=== PATIENT | female | born 1985 | race African-American/Black ===

== ENCOUNTER 2018-11-26 23:22 | Observation (INO) | payer BC ==
[2018-11-27] MEDS ORDERED: diPHENhydraMINE IV* 50 MG/ML 1 ml VIAL (BENADRYL) IV ONE (02:54)
[2018-11-27] MEDS ORDERED: Famotidine IV* 10 MG/ML 2 ML (20 mg) IV SLOW PU ONE (02:54)
[2018-11-27] MEDS ORDERED: methylPREDNISolone 125 MG* 2 ML VIAL IV ONE (02:54)
[2018-11-27 04:31] LABS: ABS Basophils 0.1 10^3/ul (0-0.2); ABS Eosinophils 0.1 10^3/ul (0-0.6); ABS Monocytes 0.5 10^3/ul (0-0.8); ABS Neutrophils 6.5 10^3/ul (1.5-7.7); Hematocrit 35 % (35-47); Hemoglobin 11.7 g/dL (12.0-16.0); Lymphocyte % 22.1 %; Mean Corpuscular HGB Conc 34 g/dL (31-36); Mean Corpuscular Hemoglobin 28 pg (27-31); Mean Corpuscular Volume 83 fL (80-97); Mean Platelet Volume 7.7 fL (7.4-10.4); Nucleated Red Blood Cells % 0.1; Platelet Count 315 10^3/uL (150-450); Red Blood Count 4.22 10^6 /uL (3.70-4.87); Red Cell Distribution Width 15 % (10-15); White Blood Count 9.2 10^3/uL (3.5-10.8)
[2018-11-27 04:50] LABS: Albumin/Globulin Ratio 1.5 (1-3); BUN/Creatinine Ratio 7.2 (8-20); EGFR African American 95.2 (>60); EGFR Non-African American 78.7 (>60); Globulin 2.6 g/dL (2-4); Potassium 3.6 mmol/L (3.5-5.0); Total Bilirubin 0.5 mg/dL (0.2-1.0); Total Protein 6.6 g/dL (6.4-8.9)
--- NOTE | 2018-11-27 07:28 | ED ---
Complex/Multi-Sys Presentation - HPI Summary HPI Summary: The patient is a 33 y/o F presenting to [facility] with a chief complaint of swelling in the upper lip starting at 1999. She reports that earlier in the morning she used a lip plumping tool, which she has used before, and her lips returned to normal throughout the day. At 1999, the left side of her upper lip starting swelling, and then it spread to the rest of the lip and her cheeks. She additionally c/o LUNSFORD. She denies swelling of the lower lip, tongue swelling, and throat swelling. She used Benadryl [employer] to no relief. Hx of HTN (Lisinopril) , GERD (Pantoprazole). Current smoker, rare EtOH, no substance use. - History Of Current Complaint Chief Complaint: EDGeneral Time Seen by Provider: 11/27/18 02:31 Hx Obtained From: Patient Onset/Duration: Sudden Onset, Lasting Hours - 1999, Still Present Timing: Constant, Hours Severity Currently: Mild Severity Initially: Severe Character: Throbbing Aggravating Factor(s): nothing Alleviating Factor(s): nothing Associated Signs And Symptoms: Positive: Headache, Other - NEGATIVE: tongue or throat swelling, swelling of lower lip - Allergies/Home Medications Allergies/Adverse Reactions: Allergies Allergy/AdvReac Type Severity Reaction Status Date / Time lidocaine AdvReac See Comment Verified 11/27/18 02:55 Home Medications: Home Medications Ethinyl Estradiol/Drospirenone [Gianvi 3-0.02 mg] 1 tab PO DAILY 11/27/18 [ History Confirmed 11/27/18] Isotretinoin [Myorisan] 40 mg PO BID 11/27/18 [History Confirmed 11/27/18] PMH/Surg Hx/FS Hx/Imm Hx Endocrine/Hematology History: Denies: Hx Diabetes, Hx Anemia Cardiovascular History: Reports: Hx Hypertension GI History: Reports: Hx Gastroesophageal Reflux Disease Denies: Hx Jaundice - Cancer History Hx Chemotherapy: No Hx Radiation Therapy: No - Surgical History Surgical History: None Surgery Procedure, Year, and Place: none Infectious Disease History: No Infectious Disease History: Denies: Traveled Outside the [place] in Last 30 Days - Family History Known Family History: Positive: Hypertension - Social History Alcohol Use: Rare Hx Substance Use: No Substance Use Type: Reports: None Hx Tobacco Use: Yes Smoking Status (MU): Light Every Day Tobacco Smoker Review of Systems Positive: Fever ENT: Other - POSITIVE: swelling of the upper lip and in the cheeks; NEGATIVE: swelling in lower lip, tongue swelling, throat swelling Negative: Shortness Of Breath, Cough Negative: Vomiting, Nausea Negative: Rash, Bruising Positive: Headache All Other Systems Reviewed And Are Negative: Yes Physical Exam - Summary Physical Exam Summary: Constitutional: Well-developed, Well-nourished, Alert. (-) Distressed Skin: Warm, Dry HENT: Swelling of upper lip including nasolabial folds extending to upper cheeks bilaterally and extending to lower cheeks, sparing the lower lip, posterior pharynx is normal; Atraumatic Eyes: Conjunctiva normal Neck: Musculoskeletal ROM normal neck. (-) JVD, (-) Stridor, (-) Tracheal deviation Cardio: Rhythm regular, rate normal, Heart sounds normal; Intact distal pulses; The pedal pulses are 2+ and symmetric. Radial pulses are 2+ and symmetric. (-) Murmur Pulmonary/Chest wall: Effort normal. (-) Respiratory distress, (-) Wheezes, (-) Rales Abd: Soft, (-) tenderness, (-) Distension, (-) Guarding, (-) Rebound Musculoskeletal: (-) Edema Lymph: (-) Cervical adenopathy Neuro: Alert, Oriented x3 Psych: Mood and affect Normal Triage Information Reviewed: Yes Vital Signs On Initial Exam: Initial Vitals Temp Pulse Resp BP Pulse Ox 97.8 F 79 16 170/113 100 11/26/18 23:24 11/26/18 23:24 11/26/18 23:24 11/26/18 23:24 11/26/18 23:24 Vital Signs Reviewed: Yes Appearance: Positive: Well-Appearing Diagnostics - Vital Signs Vital Signs Temp Pulse Resp BP Pulse Ox 11/27/18 06:21 55 117/80 94 11/27/18 06:15 50 121/86 99 11/27/18 06:09 47 140/85 100 11/27/18 06:00 45 100 11/27/18 05:46 48 120/85 99 11/27/18 05:38 121/87 11/27/18 05:21 139/97 11/27/18 05:01 46 100 11/27/18 04:59 49 133/94 100 11/27/18 04:51 47 136/87 100 11/27/18 04:21 48 129/90 100 11/27/18 04:00 47 100 11/27/18 03:52 46 146/97 100 11/27/18 03:24 49 100 11/27/18 03:21 153/98 11/27/18 01:55 97.7 F 54 16 158/108 97 11/26/18 23:24 97.8 F 79 16 170/113 100 - Laboratory Lab Results: Lab Results 11/27/18 11/27/18 11/27/18 Range/Units 04:25 04:25 04:25 WBC 9.2 (3.5-10.8) 10^3/uL RBC 4.22 (3.70-4.87) 10^6 /uL Hgb 11.7 L (12.0-16.0) g/dL Hct 35 (35-47) % MCV 83 (80-97) fL MCH 28 (27-31) pg MCHC 34 (31-36) g/dL RDW 15 (10-15) % Plt Count 315 (150-450) 10^3/uL MPV 7.7 (7.4-10.4) fL Neut % (Auto) 71.0 % Lymph % (Auto) 22.1 % [place] % (Auto) 5.2 % Eos % (Auto) 1.0 % Baso % (Auto) 0.7 % Absolute Neuts (auto) 6.5 (1.5-7.7) 10^3/ul Absolute Lymphs (auto) 2.0 (1.0-4.8) 10^3/ul Absolute Monos (auto) 0.5 (0-0.8) 10^3/ul Absolute Eos (auto) 0.1 (0-0.6) 10^3/ul Absolute Basos (auto) 0.1 (0-0.2) 10^3/ul Absolute Nucleated RBC 0.0 10^3/ul Nucleated RBC % 0.1 Sodium 138 (135-145) mmol/L Potassium 3.6 (3.5-5.0) mmol/L Chloride 107 (101-111) mmol/L Carbon Dioxide 26 (22-32) mmol/L Anion Gap 5 (2-11) mmol/L BUN 6 (6-24) mg/dL Creatinine 0.83 (0.51-0.95) mg/dL Est GFR ( Amer) 95.2 (>60) Est GFR (Non-Af Amer) 78.7 (>60) BUN/Creatinine Ratio 7.2 L (8-20) Glucose 104 H (70-100) mg/dL Calcium 9.0 (8.6-10.3) mg/dL Total Bilirubin 0.50 (0.2-1.0) mg/dL AST 22 (13-39) U/L ALT 31 (7-52) U/L Alkaline Phosphatase 41 (34-104) U/L Total Protein 6.6 (6.4-8.9) g/dL Albumin 4.0 (3.2-5.2) g/dL Globulin 2.6 (2-4) g/dL Albumin/Globulin Ratio 1.5 (1-3) Blood Type O Positive Antibody Screen Negative Result Diagrams: 11/27/18 04:25 11/27/18 04:25 Lab Statement: Any lab studies that have been ordered have been reviewed, and results considered in the medical decision making process. Re-Evaluation - Re-Evaluation First Eval Re-Evaluation Time: 04:00 Change: Unchanged Comment: The patient's lip is still swollen, but ill administer FP. Second Eval Re-Evaluation Time: 06:00 Change: Improved Comment: Patient's lip is still swollen but has improved. Third Eval Re-Evaluation Time: 07:00 Change: Improved Comment: Swelling has improved in lips but cheeks are worsening and the swelling is now extending to the left periorbital region. Complex Multi-Symp Course/Dx Course Of Treatment: The patient is a 33 y/o F presenting to [facility] with a chief complaint of swelling in the upper lip starting at 2000 after using lip plumper in the morning where her lips went back to normal but then had swelling starting in the left lip that eventually moved to the whole lip and cheeks. She additionally c/o LUNSFORD. She denies swelling of the lower lip, tongue swelling, and throat swelling. She used Benadryl [employer] to no relief. Hx of HTN for which she takes Lisinopril. Upon physical exam, the patient exhibits swelling of upper lip including nasolabial folds extending to upper cheeks bilaterally and extending to lower cheeks, sparing the lower lip, posterior pharynx is normal. Blood work reveals hgb of 11.7, BUN/Creatinine of 7.2, and glucose of 104. In the ED course, the patient was administered Benadryl, Pepcid, and Solu-Medrol. Additionally, the patient was administered 2 unites of FP for dx of VERONICA-induced angioedema. On first re-evaluation after FFP, lips had improved, but cheeks were becoming more swollen. On second re-evaluation after FFP, the right lip had improved further but the left eye is now worsening. The hospitalist team was contacted and the patient will be admitted for further management of VERONICA- inhibitor induced angioedema. - Diagnoses Provider Diagnoses: VERONICA inhibitor-aggravated angioedema Is Visit Related: No Discharge - Sign-Out/Discharge Documenting (check all that apply): Patient Departure - Patient will be discharged home. Patient Received Moderate/Deep Sedation with Procedure: No - Discharge Plan Condition: Stable Disposition: ADMITTED TO [facility] Referrals: Katie Joe MD [Primary Care Provider] - - Billing Disposition and Condition Condition: STABLE Disposition: Admitted to [facility] - Attestation Statements Document Initiated by Laura: Yes Documenting Scribe: Shirley Perez Provider For Whom Laura is Documenting (Include Credential): Dr. Clarisa Dai MD Scribe Attestation: Shirley Fang scribed for Dr. Clarisa Dai MD on 11/27/18 at 0848. Scribe Documentation Reviewed: Yes Provider Attestation: The documentation as recorded by the Shirley veloz accurately reflects the service I personally performed and the decisions made by me, Dr. Clarisa Dai MD Status of Scribe Document: Viewed
[2018-11-27] MEDS ORDERED: SUMAtriptan TAB* 100 MG PO PRN (09:50)
[2018-11-27] MEDS ORDERED: ALPRAZolam TAB* 0.25 MG PO SCH (10:00)
[2018-11-27] MEDS ORDERED: Escitalopram * 10 MG TAB PO SCH (10:00)
[2018-11-27] MEDS ORDERED: Pantoprazole TAB * 40 MG TAB PO SCH (10:00)
[2018-11-27] MEDS ORDERED: ETHINYL ESTRADIOL PO SCH (10:00)
[2018-11-27] MEDS ORDERED: DROSPIRENONE PO SCH (10:00)
[2018-11-27] MEDS ORDERED: Enoxaparin(*) 40 MG/0.4 ML SYR SUBCUT SCH (10:00)
--- NOTE | 2018-11-27 10:01 | ADMNOTE ---
Subjective Date of Service: 11/27/18 Interval History: COMBINED ADMISSION HISTORY AND PHYSICAL EXAM AND DISCHARGE SUMMARY: Allergies Allergy/AdvReac Type Severity Reaction Status Date / Time lidocaine AdvReac See Comment Verified 11/27/18 02:55 Home Medications Medication Instructions Recorded Confirmed Type ALPRAZolam [Alprazolam] 0.25 mg PO TID 08/16/18 11/27/18 History Escitalopram Oxalate [Lexapro 10 10 mg PO DAILY 08/16/18 11/27/18 History mg] Fluticasone Propionate Diskus 50 mcg IH DAILY 08/16/18 11/27/18 History [Flovent Diskus] Lisinopril 40 mg PO DAILY 08/16/18 11/27/18 History Pantoprazole Sodium [Protonix] 20 mg PO DAILY 08/16/18 11/27/18 History SUMAtriptan succinate [Sumatriptan 100 mg PO DAILY PRN MDD 2 08/16/18 11/27/18 History Succinate] Ethinyl Estradiol/Drospirenone 1 tab PO DAILY 11/27/18 11/27/18 History [Gianvi 3-0.02 mg] Isotretinoin [Myorisan] 40 mg PO BID 11/27/18 11/27/18 History HPI: The patient used a lip plumper in the afternoon /. In a few hours she developed severe swelling of the upper lip. This AM the lip swelling is sl better but she had malar and periorbital swelling. No SOB. Hungry. Family History: Findings - unremarkable Social History: Findings - Single. Smokes. No alcohol abuse. [employer] Past Medical History: Findings - GERD Review of Systems - Measurements Intake and Output: Intake and Output Last 24 Hours 11/25/18 11/26/18 11/27/18 11/28/18 06:59 06:59 06:59 06:59 Weight 160 lb - Review of Systems Constitutional Symptoms: Negative: Weight Gain, Weight Loss, Weakness, Fatigue, Fever, Night Sweats, Unexplained Falls, Other Dermatology: Negative: Normal, Rash, Skin Lesions, Cancer, Skin Lumps, Other HEENT: Positive: Normal Eyes: Positive: Normal Thyroid: Positive: Normal Pulmonary: Positive: Normal Cardiology: Positive: Normal Gastroenterology: Positive: Other - GERD Genital - Urinary: Positive: Normal Genitourinay - Female: Positive: Menses Normal Musculoskeletal: Negative: Joint Pain, Joint Stiffness, Arthritis, Osteoporosis, Low Back Pain , Sciatica, Joint Deformities, Kyphoscoliosis, Other Endocrinology: Positive: Normal Hematologic/Lymphatic: Negative: Anemia, Easy Bruising, Hx Leukemia, Hx Lymphoma, Use of Anticoagulant, Use of Antiplatelet Drugs, Other Neurology: Positive: Migraines Psychiatry: Positive: Normal Allergic/Immunologic: Negative: Hx Anaphylaxis, Hx Angioedema, Hx Environmental, Hx Seasonal, Asthma, Hx HIV, Immunocompromise, Swollen Glands LymphNodes, Other Objective Active Medications: Alprazolam (Xanax Tab*) 0.25 mg PO TID DANA Enoxaparin Sodium (Lovenox(*)) 40 mg SUBCUT Q24H DANA Escitalopram Oxalate (Lexapro *) 10 mg PO DAILY DANA Ethinyl Estradiol/Drospirenone (Gregoria 28 Tablet (Nf)) 1 tab PO DAILY DANA Fluticasone Propionate (Flovent Diskus) puff INH DAILY DANA Pantoprazole Sodium (Protonix Tab (Nf)) 20 mg PO DAILY DANA Sumatriptan Succinate (Imitrex Tab*) 100 mg PO DAILY PRN PRN Reason: MIGRAINE HEADACHE Vital Signs - 8 hr 11/27/18 11/27/18 11/27/18 03:21 03:24 03:52 Pulse Rate 49 46 Blood Pressure 153/98 146/97 (mmHg) O2 Sat by Pulse 100 100 Oximetry 11/27/18 11/27/18 11/27/18 04:00 04:21 04:51 Pulse Rate 47 48 47 Blood Pressure 129/90 136/87 (mmHg) O2 Sat by Pulse 100 100 100 Oximetry 11/27/18 11/27/18 11/27/18 04:59 05:01 05:21 Pulse Rate 49 46 Blood Pressure 133/94 139/97 (mmHg) O2 Sat by Pulse 100 100 Oximetry 11/27/18 11/27/18 11/27/18 05:38 05:46 06:00 Pulse Rate 48 45 Blood Pressure 121/87 120/85 (mmHg) O2 Sat by Pulse 99 100 Oximetry 11/27/18 11/27/18 11/27/18 06:09 06:15 06:21 Pulse Rate 47 50 55 Blood Pressure 140/85 121/86 117/80 (mmHg) O2 Sat by Pulse 100 99 94 Oximetry 0711/27/18 11/27/18 06:51 07:00 07:21 Pulse Rate 51 48 60 Blood Pressure 126/88 147/96 (mmHg) O2 Sat by Pulse 98 97 97 Oximetry 11/27/18 11/27/18 11/27/18 08:17 08:19 08:21 Pulse Rate 51 55 Blood Pressure 128/95 120/86 (mmHg) O2 Sat by Pulse 98 98 Oximetry 11/27/18 11/27/18 08:51 09:00 Pulse Rate 49 53 Blood Pressure 128/87 (mmHg) O2 Sat by Pulse 97 92 Oximetry Oxygen Devices in Use Now: None Appearance: Alert, partly up on ED stretcher. Looks fatigued but otherwise comfortable. Eyes: No Scleral Icterus Respiratory: Symmetrical Chest Expansion and Respiratory Effort, Clear to Auscultation, Clear to Percussion Cardiovascular: NL Sounds; No Murmurs; No JVD, RRR, No Edema, - Abdominal: NL Sounds; No Tenderness; No Distention, No Hepatosplenomegaly, - Skin: No Nodules or Sclerosis, - - mod swelling upper lip, some swelling malar areas BL, ? periorbital swelling. Neurological: NL Sensation Result Diagrams: 11/27/18 04:25 11/27/18 04:25 Additional Lab and Data: Lab Results 11/27/18 11/27/18 11/27/18 Range/Units 04:25 04:25 04:25 WBC 9.2 (3.5-10.8) 10^3/uL RBC 4.22 (3.70-4.87) 10^6 /uL Hgb 11.7 L (12.0-16.0) g/dL Hct 35 (35-47) % MCV 83 (80-97) fL MCH 28 (27-31) pg MCHC 34 (31-36) g/dL RDW 15 (10-15) % Plt Count 315 (150-450) 10^3/uL MPV 7.7 (7.4-10.4) fL Neut % (Auto) 71.0 % Lymph % (Auto) 22.1 % [place] % (Auto) 5.2 % Eos % (Auto) 1.0 % Baso % (Auto) 0.7 % Absolute Neuts (auto) 6.5 (1.5-7.7) 10^3/ul Absolute Lymphs (auto) 2.0 (1.0-4.8) 10^3/ul Absolute Monos (auto) 0.5 (0-0.8) 10^3/ul Absolute Eos (auto) 0.1 (0-0.6) 10^3/ul Absolute Basos (auto) 0.1 (0-0.2) 10^3/ul Absolute Nucleated RBC 0.0 10^3/ul Nucleated RBC % 0.1 Sodium 138 (135-145) mmol/L Potassium 3.6 (3.5-5.0) mmol/L Chloride 107 (101-111) mmol/L Carbon Dioxide 26 (22-32) mmol/L Anion Gap 5 (2-11) mmol/L BUN 6 (6-24) mg/dL Creatinine 0.83 (0.51-0.95) mg/dL Est GFR ( Amer) 95.2 (>60) Est GFR (Non-Af Amer) 78.7 (>60) BUN/Creatinine Ratio 7.2 L (8-20) Glucose 104 H (70-100) mg/dL Calcium 9.0 (8.6-10.3) mg/dL Total Bilirubin 0.50 (0.2-1.0) mg/dL AST 22 (13-39) U/L ALT 31 (7-52) U/L Alkaline Phosphatase 41 (34-104) U/L Total Protein 6.6 (6.4-8.9) g/dL Albumin 4.0 (3.2-5.2) g/dL Globulin 2.6 (2-4) g/dL Albumin/Globulin Ratio 1.5 (1-3) Blood Type O Positive Antibody Screen Negative Assess/Plan/Problems-Billing Assessment: - Patient Problems (1) Angioedema Status: Acute Code(s): T78.3XXA - ANGIONEUROTIC EDEMA, INITIAL ENCOUNTER SNOMED Code(s): 80415680 Comment: Likely due to VERONICA. Patient advised to stop lisinopril, consult primary about BP meds. Pt recevied methylprednisolone, diphenhytdramine, famotidine, FFP in ED. The patient tolerated her diet and felt comfortable enough to go home about 6 PM. (2) Migraines Status: Acute Code(s): G43.909 - MIGRAINE, UNSP, NOT INTRACTABLE, WITHOUT STATUS MIGRAINOSUS SNOMED Code(s): 75738862 Comment: PRN sumatriptan. (3) HTN (hypertension) Status: Acute Code(s): I10 - ESSENTIAL (PRIMARY) HYPERTENSION SNOMED Code(s) : 96936566 Comment: Stop ACEI. Pt to fup with PCP. (4) Tobacco abuse Status: Acute Code(s): Z72.0 - TOBACCO USE SNOMED Code(s): 663082052 Comment: Patient advised to quit smoking and avoid second smoke. She declined NRT. Status and Disposition: DISPOSITION ON DISCHARGE: discharge home CONDITION ON DISCHARGE: improved
[2018-11-27 16:30] VITALS: BP 135/93
[2018-11-27] MEDS ORDERED: Mometasone 110 MCG MDI INH SCH (22:00)
== END 2018-11-27 18:05 | disposition home or self-care (01) ==
LOC: ED 23:22 → MED 11-27 09:16
PROVIDERS: ADMIT Internal Medicine; ATTEND Internal Medicine
DX: T78.3XXA Angioneurotic edema, initial encounter (principal); X58.XXXA Exposure to other specified factors, initial encounter; G43.909 Migraine, unspecified, not intractable, without status migrainosus; I10 Essential (primary) hypertension; F17.200 Nicotine dependence, unspecified, uncomplicated; Z79.899 Other long term (current) drug therapy; K21.9 Gastro-esophageal reflux disease without esophagitis; Z88.8 Allergy status to other drugs, medicaments and biological substances
CPT/HCPCS: 36415; 36430; 80053; 85025; 86850; 86900; 86901; 86927; 96374; 96375; 99285; A9270-GY; G0378; J1200; J1650; J2930; P9017